=== PATIENT | male | born 1960 | race Caucasian/White ===

== ENCOUNTER 2019-01-15 18:22 | Emergency (ER) | payer BC ==
[2019-01-15] MEDS ORDERED: LIDOCAINE 1% W/EPI 1:200,000 MPF 30ML SQ ONE (18:43)
[2019-01-15] MEDS ORDERED: CEPHALEXIN 500 MG CAPSULE PO STA (18:45)
--- NOTE | 2019-01-15 19:12 | Emergency Department Record ---
History of Present Illness - General Chief Complaint: Laceration(s) Stated Complaint: SAW LAC LT HAND Time Seen by Provider: 01/15/19 18:40 Source: Patient Mode of Arrival: Ambulatory Limitations: No limitations - History of Present Illness Initial Commments: The patient cut his L hand with a Mitter saw a half hour prior to presenting to the ER. He has mild pain but no weakness, numbness, or tingling. His Td is UTD. Onset/Timin -: Minutes(s) Place: Outdoors Context: Accidental, Power tool use Associated Symptoms: None Treatments Prior to Arrival: Bandage - Related Data Hx Tetanus Toxoid Vaccination: Yes Patient Tetanus UTD (within 5 yrs): No Home Medications Medication Instructions Recorded Confirmed Last Taken Citalopram Hydrobromide 20 mg PO DAILY 01/15/19 01/15/19 Unknown [Citalopram HBr] Meloxicam [Mobic] 15 mg PO DAILY 01/15/19 01/15/19 Unknown Metformin HCl 500 mg PO BID 01/15/19 01/15/19 Unknown Tramadol HCl [Ultram] 50 mg PO Q8H 01/15/19 01/15/19 Unknown Previous Rx's Medication Instructions Recorded Cephalexin [Keflex] 500 mg PO QID #20 cap 01/15/19 Allergies Allergy/AdvReac Type Severity Reaction Status Date / Time loratadine [From Claritin] Allergy ASTHMA Verified 01/15/19 19:25 Travel Screening - Travel/Exposure Within Last 30 Days Have you traveled within the last 30 days?: No Review of Systems Constitutional: Denies: Chills, Fever Past Medical History - SOCIAL HISTORY Smoking Status: Never smoker Alcohol Use: None Drug Use: None - RESPIRATORY Hx Respiratory Disorders: Yes Hx of CPAP: Yes - CARDIOVASCULAR Hx Cardio Disorders: No - NEURO Hx Neuro Disorders: No - GI Hx GI Disorders: No - Hx Genitourinary Disorders: Yes Hx Renal Disease: Yes (cancer) - ENDOCRINE Hx Endocrine Disorders: No - MUSCULOSKELETAL Hx Musculoskeletal Disorders: No - PSYCH Hx Psych Problems: No - HEMATOLOGY/ONCOLOGY Hx Hematology/Oncology Disorders: Yes Hx Cancer: Yes Hx Chemotherapy: No Hx Radiation Therapy: No Family Medical History Any Significant Family History?: No Physical Exam - General General Appearance: Alert, Oriented x3, Cooperative, No acute distress - Head Head exam: Atraumatic - Eye Eye exam: Normal appearance - Extremities Extremities exam: Full ROM (There is no weakness to the L 2nd finger and thumb extension. Sensation is normal distally.), Normal capillary refill, Other (The L hand is NVI.). negative: Normal inspection (There is a 2.5 cm irregular wound to the L dorsal hand in the web space between the 1st and 2nd Metacarpals. 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 Course Vital Signs 01/15/19 18:30 Temperature 98.1 F Pulse Rate [ 86 Pulse Ox Probe] Respiratory 16 Rate Blood Pressure 148/93 [Right Arm] Pulse Ox 97 - Reevaluation(s) Reevaluation #1: Procedure note: The L hand lac was anesth. with 2 cc's Lido 1% with Epi. The wound was prepped with betadine and lavaged copiously with sterile saline. The edges were extensively debrided due to significant irregularity of the wound edges. The Lac was explored and did not go down thru the muscle and was more of a flap. The lac was then closed with 5 4.0 nylon sutures. There were no complications. 01/15/19 19:11 Disposition Disposition: Discharge Clinical Impression: Laceration of hand Qualifiers: Encounter type: initial encounter Foreign body presence: without foreign body Laterality: left Qualified Code(s): S61.412A - Laceration without foreign body of left hand, initial encounter Disposition: Home, Self-Care Condition: (2) Stable Instructions: Laceration (ED) Additional Instructions: Keep dry for 2 days then no soaking or swimming. Take the Keflex as directed and please return to the ER for any signs of infection. Have the sutures removed in 10 days. Prescriptions: Cephalexin [Keflex] 500 mg PO QID #20 cap Forms: Patient Portal Access Time of Disposition: 19:17 Quality - Quality Measures Quality Measures: N/A - Blood Pressure Screening View Details: Yes Does Patient Have Any of the Following: No Blood Pressure Classification: Hypertensive Reading Systolic Measurement: 148 Diastolic Measurement: 93 Screening for High Blood Pressure: < First Hypertensive BP, F/U Documented > [G8950] First Hypertensive Follow-up Interventions: Referral to alternative/primary care provider.
== END 2019-01-15 19:27 | disposition home or self-care (01) ==
LOC: ER 18:22
DX: S61.412A Laceration without foreign body of left hand, initial encounter (principal); W31.2XXA Contact with powered woodworking and forming machines, initial encounter; Y92.89 Other specified places as the place of occurrence of the external cause
CPT/HCPCS: 12041; 99284

== ENCOUNTER 2019-01-26 08:46 | Emergency (ER) | payer BC ==
--- NOTE | 2019-01-26 08:49 | Emergency Department Record ---
History of Present Illness - General Chief Complaint: Suture removal Stated Complaint: SUTURE REMOVAL Time Seen by Provider: 01/26/19 08:47 Source: Patient Mode of arrival: Ambulatory Limitations: No limitations - History of Present Illness Initial Comments: The patient is here for suture removal. They were placed here 11 days ago. He denies any problems or issues. Complaint: Suture/staple removal - Related Data Allergies Allergy/AdvReac Type Severity Reaction Status Date / Time loratadine [From Claritin] Allergy ASTHMA Verified 01/26/19 08:54 Past Medical History - SOCIAL HISTORY Smoking Status: Never smoker Drug Use: None - RESPIRATORY Hx Respiratory Disorders: Yes Hx of CPAP: Yes - CARDIOVASCULAR Hx Cardio Disorders: No - NEURO Hx Neuro Disorders: No - GI Hx GI Disorders: No - Hx Genitourinary Disorders: Yes Hx Renal Disease: Yes (cancer) - ENDOCRINE Hx Endocrine Disorders: No - MUSCULOSKELETAL Hx Musculoskeletal Disorders: No - PSYCH Hx Psych Problems: No - HEMATOLOGY/ONCOLOGY Hx Hematology/Oncology Disorders: Yes Hx Cancer: Yes Hx Chemotherapy: No Hx Radiation Therapy: No Physical Exam - General General Appearance: Alert, Cooperative - Extremities Extremities exam: Normal inspection (The lac is well healed and the sutures were removed without difficulty.) Disposition Disposition: Discharge Clinical Impression: Encounter for removal of sutures Disposition: Home, Self-Care Condition: (2) Stable Instructions: Stitches Removal (ED) Additional Instructions: Return to the ER for any problems. Forms: Patient Portal Access Time of Disposition: 08:49 Quality - Quality Measures Quality Measures: N/A - Blood Pressure Screening View Details: Yes Does Patient Have Any of the Following: No Blood Pressure Classification: Hypertensive Reading Systolic Measurement: 138 Diastolic Measurement: 96 Screening for High Blood Pressure: < First Hypertensive BP, F/U Documented > [G8950] First Hypertensive Follow-up Interventions: Referral to alternative/primary care provider.
== END 2019-01-26 09:03 | disposition home or self-care (01) ==
LOC: ER 08:46
DX: Z48.02 Encounter for removal of sutures (principal)